=== PATIENT | male | born 1965 | race Caucasian/White ===

== ENCOUNTER 2025-03-02 23:22 | Inpatient (IN) | payer BC, SELFPAY ==
[2025-03-02 18:10] VITALS: BP 130/75
[2025-03-02 18:30] LABS: % Basophils 0.3 % (0-2); % Immature Granulocytes 0.6 % (0-0.5); % Lymphocytes 11.9 % (20.5-51.1); % Monocytes 6.8 % (1.7-9.3); % Neutrophils 80.4 % (42.2-75.2); Absolute Basophils 0.1 10^3/uL (0-0.2); Absolute Immature Granulocytes 0.1 10^3/uL (0-0.05); Absolute Lymphocytes 2.1 10^3/uL (1.2-3.4); Absolute Monocytes 1.2 10^3/uL (0.1-0.6); Absolute Neutrophils 13.9 10^3/uL (1.4-6.5); Hematocrit 48.3 % (39.0-52.0); Hemoglobin 16.6 g/dL (13.0-18.0); Mean Corp Hgb Conc. 34.4 g/dL (33.0-37.0); Mean Corpuscular Hgb 29.9 pg (27.0-31.0); Mean Corpuscular Volume 86.9 fL (80.0-94.0); Mean Platelet Volume 10.4 fL (7.4-10.4); Nucleated Red Blood Cells % 0 % (-); Platelet Count 165 10^3/uL (130-400); Red Blood Cell Count 5.56 10^6/uL (4.70-6.10); Red Cell Dist. Width 13.4 % (11.5-14.5); White Blood Cell Count 17.3 10^3/uL (4.8-10.8)
[2025-03-02 18:40] LABS: INR 1.25
[2025-03-02 18:42] LABS: Lactic Acid 1.7 mmol/L (0.7-2.0)
[2025-03-02 18:43] LABS: ALT (SGPT) 25 U/L (0-50); AST (SGOT) 40 U/L (17-59); Albumin 4.1 g/dl (3.5-5.0); Alkaline Phosphatase 58 U/L (38-126); Blood Urea Nitrogen 19 mg/dl (9-20); Carbon Dioxide 25 mmol/L (22-30); Chloride 101 mmol/L (98-107); Glucose 182 mg/dl (70-99); Potassium 4.5 mmol/L (3.5-5.1); Sodium 137 mmol/L (135-145); Total Bilirubin 2.9 mg/dl (0.2-1.3); Total Protein 7.6 g/dl (6.3-8.2); eGFR 48.72
[2025-03-02 19:53] VITALS: BP 138/74
[2025-03-02 19:58] LABS: Glucose - Point of Care 180 mg/dl (70-99)
[2025-03-02 20:00] VITALS: BP 127/72
[2025-03-02 20:44] VITALS: BMI 35.8
[2025-03-02 20:45] VITALS: BP 127/72
[2025-03-02] MEDS: OFIRMEV 100 IV (20:58)
[2025-03-02] MEDS: ZOFRAN 4 MG IV (20:59)
[2025-03-02] MEDS: NSS 1000 IV (20:59)
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
[2025-03-02 22:00] VITALS: BP 107/66
[2025-03-02] MEDS: ZOSYN 50 IV (22:15)
[2025-03-02] MEDS: VANCOCIN 540 MG IV (22:43)
[2025-03-02 23:00] VITALS: BP 108/68
--- NOTE | 2025-03-02 23:05 | HPS.HSE ---
Family Physician
-
Family Physician: Josey Lara, DO
Chief Complaint
-
Left lower leg abrasion, erythema with lymphangitis and fever x 2 days
History of Present Illness
59-year-old male complaining of left leg redness, pain, swelling and fever. He reports he had a minor abrasion to his anterior gamble for approximately 1 month over the 2 days he has had increased redness with pain the redness then began to start
streaking up his leg with fever and chills. He was febrile at 100.5 in the ER his reported to the ER he had similar symptoms with cellulitis in the past. He denies headache, sore throat, chest pain, palpitations, cough, shortness of breath,
abdominal pain, nausea, vomiting, diarrhea, urinary symptoms.
He has past medical history past medical history DM2, HLD, tremors to head and hands undiagnosed, class II obesity, anxiety
Medical History
Past Medical History
Past Medical History: Reports Other
Additional Past Medical History:
DM2
HLD
tremors to head and hands undiagnosed
class II obesity
anxiety
Past Surgical History: Reports Other
Additional Past Surgical History:
Appendectomy
Social History
Tobacco: Non-smoker
Alcohol: None
Drug: None
Personal:
Living: With Family ()
Employment: Employed ([employer])
Family History
Family History: Not pertinent
Allergies / Home Medications
Allergies reflects when Allergies were last updated in [facility].
Home Medications with original date entered in [facility]
Allergy/Medication List:
Allergies
Allergy/AdvReac Type Severity Reaction Status Date / Time
clindamycin Allergy Rash Verified 03/02/25 18:14
Home Medications
ascorbic acid (vitamin C) 500 mg tablet (Vitamin C) 500 mg PO DAILY 03/02/25
citalopram 40 mg tablet 40 mg PO DAILY 03/02/25
empagliflozin 25 mg-linagliptin 5 mg-metformin ER 1,000 mg tablet,24hr (Trijardy XR) 1 tab PO DAILY 03/02/25
glimepiride 2 mg tablet 1 mg PO QPM 03/02/25
insulin glargine 100 unit/mL (3 mL) subcutaneous pen (Lantus Solostar U-100 Insulin) 18 unit SC HS 03/02/25
metformin 500 mg tablet,extended release 24 hr 500 mg PO DAILY 03/02/25
rosuvastatin 10 mg tablet 10 mg PO HS 03/02/25
therapeutic multivitamin 1 tab PO DAILY 03/02/25
Review of Systems
-
History Source: Patient
A 12 point ROS was completed and negative except as noted: Yes
Constitutional: Reports Fever
EENT: Denies Sore Throat or Runny Nose
Respiratory: Denies Cough or Trouble Breathing
Cardiac: Denies Chest Pain, Diaphoresis, Palpitations or Syncope
Abdomen/GI: Reports Other (Decreased appetite and oral intake past 2 days); Denies Abdominal Pain, Nausea, Vomiting, Diarrhea, Constipated, Bloody Stools or Black Stools
: Denies Dysuria, Frequency, Flank Pain, Incontinence, Difficulty Voiding or Urgency
Musculoskeletal: Denies Joint Pain or Edema
Skin: Reports Other (Left lower extremity anterior gamble old scab with surrounding erythema up anterior gamble to the medial aspect of inner thigh up to groin); Denies Itching or Rash
Neurological: Denies Dizzy or Headache
Endocrine: Reports No Symptoms
Hematologic/Lymphatic: Reports No Symptoms
Psych: Reports Calm
Physical Exam
Vital Signs
Vital Signs
Temp Pulse Resp BP Pulse Ox
100.5 F H 94 25 127/72 96
03/02/25 20:45 03/02/25 20:45 03/02/25 20:45 03/02/25 20:45 03/02/25 20:46
Physical Exam
General: Comfortable, Conversant, Fever and Chills
HEENT: NormoCephalic, Anicteric, Moist mucous membranes, PERRLA, [place] Conjunctivae and No Ptosis
Respiratory: Clear; No Wheezes, Rales or Rhonchi
Cardiac: S1/S2 and Regular Rhythm; No Murmur, Rub, Gallop or Peripheral Edema
Breast: Deferred by me
GI: Soft, Non Tender, Non Distended, Normal Bowel Sounds and No Hepatosplenomegaly
Rectal: Deferred by Provider
Genito-urinary: Deferred by me
Musculoskeletal: No Clubbing, No Cyanosis and Edema, Left Lower Extremity (Left lower extremity anterior gamble old scab with surrounding erythema up anterior gamble to the medial aspect of inner thigh up to groin); No Edema, Left Upper Extremity,
Edema, Right Upper Extremity or Edema, Right Lower Extremity
Skin: Warm and Dry
Neuro: AO x 3, No Motor Deficits, Nonfocal/grossly intact, Cranial Nerves Intact, No Sensory Deficits and Tremors (To head and bilateral hands); No Slurred Speech, Facial Droop or Sedated
Psych: Calm
Laboratory Results
-
03/02/25 18:22
03/02/25 18:22
Laboratory Results
PT 16.0 Sec (11.4-14.6) H 03/02/25 18:22
INR 1.25 03/02/25 18:22
Lactic Acid Cancelled 03/02/25 22:15
Total Bilirubin 2.9 mg/dl (0.2-1.3) H 03/02/25 18:22
AST 40 U/L (17-59) 03/02/25 18:22
ALT 25 U/L (0-50) 03/02/25 18:22
Alkaline Phosphatase 58 U/L (38-126) 03/02/25 18:22
Impression/Plan
-
Impression/plan:
Admit to telemetry
#Sepsis secondary to left lower leg cellulitis with lymphangitis
WBC 17.3 with left shift, 100.5 F, HR 94, 127/72
- Blood cultures x 2
-Vancomycin ,IV Zosyn
Follow CBC, BMP
CT lower extremity with IV contrast:
1. There is edema within the subcutaneous tissues, most pronounced anterior to the knee, and [id number], especially mid to distal tibia and fibula estimated to the foot.
2. No focal collection or abscess.
3. No soft tissue gas. No radiopaque foreign body.
4. Few left inguinal lymph nodes, with the largest lymph node short axis measurement of 1.3 cm, consistent with mild adenopathy.
5. No bony destruction or periosteal reaction. No CT evidence of osteomyelitis.
6. No significant arterial calcified plaque, stenosis, or occlusion.
7. Incidental note is made of small scrotal hydroceles.
? MILTON likely secondary to volume depletion versus CKD
Creat 1.6
-IV NSS1 L given in ER
- Continue IV NSS 100 cc an hour
#DM 2
BS 182
Accu-Cheks with SSI, check HgbA1c
-Hold metformin, hold Trijardy
-Continue glimepiride 1 mg every afternoon
- Continue Lantus at 9 units versus 18 units at bedtime
#Class II obesity�BMI 35.8
Affects all aspects of care
Weight loss recommended
1800 ADA low-fat diet
#Tremor to head and hands
- Patient states never had worked up as far as he can recall
- Recommend following up outpatient with neurology
#Anxiety
Continue citalopram 40 mg daily
DVT prophylaxis
Subcu heparin
Full code
--- NOTE | 2025-03-02 23:38 | W.PN.UPDATE ---
Update Note
Progress Note Update
This is an addendum to the H&P written by Anastasiya Limon on 03/02/2025. Patient seen and examined independently with BOILERHOUSE MECHANIC.
59-year-old male past medical history of diabetes, hypercholesteremia, anxiety/depression, presenting with left lower extremity redness and swelling and pain.
Patient with temperature of 100.5, tachypnea, tachycardia.
Labs show leukocyte of 17. Creatinine 1.6.
CT scan of left lower extremity shows edema within the subcutaneous tissues most pronounced anterior to the knee, and below the knee especially mid to distal tibia and fibula.
Patient with sepsis secondary to cellulitis/lymphangitis of left lower extremity from a prior injury. Also with MILTON. Blood cultures pending. IV fluids. Reduce insulin dose. Hold oral hypoglycemic medications.
Patient also with ongoing head and upper extremity tremors for which she needs to follow with neurology as outpatient.
[2025-03-03 01:20] VITALS: BP 111/71
[2025-03-03 01:46] VITALS: BP 120/56; BMI 35.6
[2025-03-03 02:13] LABS: Glucose - Point of Care 136 mg/dl (70-99)
[2025-03-03] MEDS: LANTUS 0.09 UNITS SC (02:14)
[2025-03-03] MEDS: NSS 1000 IV ×2 (02:15→11:15)
[2025-03-03] MEDS: ZOSYN 50 IV ×2 (05:00→09:33)
[2025-03-03 06:11] LABS: % Basophils 0.3 % (0-2); % Immature Granulocytes 0.6 % (0-0.5); % Lymphocytes 10.7 % (20.5-51.1); % Monocytes 8.9 % (1.7-9.3); % Neutrophils 79.5 % (42.2-75.2); Absolute Immature Granulocytes 0.1 10^3/uL (0-0.05); Absolute Lymphocytes 1.5 10^3/uL (1.2-3.4); Absolute Monocytes 1.3 10^3/uL (0.1-0.6); Absolute Neutrophils 11.4 10^3/uL (1.4-6.5); Mean Corp Hgb Conc. 33.3 g/dL (33.0-37.0); Mean Corpuscular Hgb 29.6 pg (27.0-31.0); Mean Corpuscular Volume 88.8 fL (80.0-94.0); Mean Platelet Volume 10.7 fL (7.4-10.4); Nucleated Red Blood Cells % 0 % (-); Platelet Count 144 10^3/uL (130-400); Red Blood Cell Count 4.73 10^6/uL (4.70-6.10); Red Cell Dist. Width 13.3 % (11.5-14.5); White Blood Cell Count 14.3 10^3/uL (4.8-10.8)
[2025-03-03 06:58] LABS: ALT (SGPT) 21 U/L (0-50); AST (SGOT) 35 U/L (17-59); Albumin 3.3 g/dl (3.5-5.0); Alkaline Phosphatase 52 U/L (38-126); Blood Urea Nitrogen 18 mg/dl (9-20); Calcium 8.1 mg/dl (8.4-10.2); Carbon Dioxide 22 mmol/L (22-30); Chloride 105 mmol/L (98-107); Estimated Creatinine Clearance 67 ml/min; Glucose 124 mg/dl (70-99); Potassium 4.8 mmol/L (3.5-5.1); Sodium 138 mmol/L (135-145); Total Bilirubin 2.2 mg/dl (0.2-1.3); Total Protein 6.2 g/dl (6.3-8.2); eGFR 52.64
[2025-03-03 07:35] VITALS: BP 131/77
[2025-03-03] MEDS: NOVOLOG FLEXPEN-LOW RESISTANCE SC ×2 (07:52→12:32)
--- NOTE | 2025-03-03 07:56 | PHA.VAN.IN ---
Assessment
- Assessment
Renal Function: Unknown baseline
Renal Function may be Overestimated due to: bmi=35.6
Concomitant Antimicrobials: zosyn
AUC Dosing Plan
- Dosing Variables
Dosing Weight (kg): 115.723
Dosing CrCl (ml/min): 67
Vd coefficient (L/kg): 0.6
- Empiric Dosing
Initial / Loading Dose: 2000mg 03/02
Maintenance Regimen: 1000mg q12h
Estimated AUC (mcg*h/mL): 494
Estimated Peak (mcg*h/mL): 28.1
Estimated Trough (mcg/ml): 14.5
Estimated Half Life (H): 11.5
- Monitoring
No levels ordered at this time: consider at steady state
Pharmacokinetics Vancomycin I
- -
Patient Age: 59
Patient Sex: Male
Vancomycin Day #: 1
Indication: Skin And Soft Tissue
Requesting Provider: Anastasiya Limon
Pertinent Antimicrobial Allergies:
clindamycin=rash
Height / Weight:
Height 5 ft 11 in
Actual Weight 115.723 kg
IBW in k.3
- Vital Signs / Lab Results
Temp Pulse Resp BP Pulse Ox
98.1 F 93 18 120/56 97
03/03/25 01:46 03/03/25 01:46 03/03/25 01:46 03/03/25 01:46 03/03/25 01:49
Lab Results - Hematology
03/02/25 03/03/25
18:22 05:40
WBC 17.3 H 14.3 H
Lab Results - Chemistry
03/02/25 03/03/25
18:22 05:40
BUN 19 18
Creatinine 1.6 H 1.5 H
Estimated Creat Clear 67
Albumin 4.1 3.3 L
03/02/25 03/02/25
18:22 22:15
Lactic Acid 1.7 Cancelled
[2025-03-03] MEDS: VITAMIN C 500 MG PO (08:22)
[2025-03-03] MEDS: CELEXA 40 MG PO (08:22)
[2025-03-03] MEDS: HEPARIN 5000 UNITS SC ×2 (08:23→21:21)
[2025-03-03] MEDS: THERAGRAN 1 TABLET PO (08:23)
--- NOTE | 2025-03-03 10:31 | W.PN.HOSP.TC ---
Today's Communication/Plan
-
cont vanco/zosyn for now
consult ID
follow cultures
Assessment / Plan
Assessment / Plan
pt is a 59 year old male
Sepsis (POA) secondary to left lower leg cellulitis with lymphangitis--on vanco/zosyn--cont for now but can likely change to Ancef 2 gms Q8--consult ID--cont IVF--await blood cultures
elevated creat--unclear baseline as has no previous labs here (although suspect CKD unknown stage due to DM type 2)--trend creat--cont IVF
Type 2 DM --agree with holding metformin/Trijardy--cont glimepiride and lantus--put back to normal dosing
obesity�BMI 35.8--Affects all aspects of care--Weight loss recommended
Tremor to head and hands--likely essential- Patient states never had worked up as far as he can recall- Recommend following up outpatient with neurology
Anxiety--Continue citalopram 40 mg daily
DVT proph--SC heparin
Code status--Full code
Anticipated Discharge: > 48 hours
Subjective/Interval History
-
Date of Service: March 03, 2025
pt c/o left leg pain, fever
Objective Data
-
Labs:
Laboratory Results
03/03/25
05:40
WBC 14.3 H
Hgb 14.0
Hct 42.0
Plt Count 144
Sodium 138
Potassium 4.8
Chloride 105
Carbon Dioxide 22
BUN 18
Creatinine 1.5 H
Glucose 124 H
Calcium 8.1 L
Total Bilirubin 2.2 H
AST 35
ALT 21
Alkaline Phosphatase 52
Vital Signs:
max temp for 24 hours
03/02/25
20:45
Temp 100.5 F H
Vital Signs
Temp Pulse Resp BP Pulse Ox
99 F 97 20 131/77 95
03/03/25 07:35 03/03/25 07:35 03/03/25 07:35 03/03/25 07:35 03/03/25 08:15
Review of Systems
-
All other systems: Reviewed and negative
Musculoskeletal: Reports Other (left leg, pain)
Physical Exam
-
General: Well Developed, Well Nourished and No Apparent Distress
HEENT: Normocephalic and Atraumatic; Negative Oxygen
Respiratory: Clear to Auscultation; Negative Wheezes or Rhonchi
Cardiac: Regular Rhythm, S1/S2 and Tachycardic
GI: Soft, Nontender, Nondistended and Normal Bowel Sounds
Musculoskeletal: No Clubbing, No Cyanosis and Other (left leg with scabbed areas on anterior gamble with surrounding circumferential redness and streaking up inner thigh to groin with painful LAD left groin)
Neuro: Awake
Psych: Calm
[2025-03-03] MEDS: TYLENOL 650 MG PO ×2 (10:58→23:15)
[2025-03-03 12:22] LABS: Glucose - Point of Care 126 mg/dl (70-99)
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
[2025-03-03 15:05] VITALS: BP 112/69
[2025-03-03 16:23] LABS: COVID-19 Antigen Negative (Negative)
[2025-03-03 16:49] LABS: Glucose - Point of Care 208 mg/dl (70-99)
[2025-03-03] MEDS: NOVOLOG FLEXPEN-LOW RESISTANCE 2 UNITS SC (17:24)
[2025-03-03] MEDS: ANCEF 10 IV (17:24)
[2025-03-03] MEDS: AMARYL 1 MG PO (17:24)
[2025-03-03 21:19] LABS: Glucose - Point of Care 142 mg/dl (70-99)
[2025-03-03] MEDS: CRESTOR 10 MG PO (21:21)
[2025-03-03] MEDS: LANTUS 0.12 UNITS SC (21:21)
[2025-03-03] MEDS: ROXICODONE 5 MG PO (21:47)
[2025-03-03 23:39] VITALS: BP 123/80
[2025-03-04] MEDS: ANCEF 10 IV ×3 (00:25→16:02)
[2025-03-04] MEDS: NSS 1000 IV ×2 (02:36→08:23)
[2025-03-04 06:19] LABS: % Basophils 0.3 % (0-2); % Immature Granulocytes 0.4 % (0-0.5); % Lymphocytes 18.4 % (20.5-51.1); % Monocytes 12.9 % (1.7-9.3); Absolute Eosinophils 0.1 10^3/uL (0-0.7); Absolute Lymphocytes 1.7 10^3/uL (1.2-3.4); Absolute Monocytes 1.2 10^3/uL (0.1-0.6); Absolute Neutrophils 6.1 10^3/uL (1.4-6.5); Hematocrit 39.9 % (39.0-52.0); Hemoglobin 13.5 g/dL (13.0-18.0); Mean Corp Hgb Conc. 33.8 g/dL (33.0-37.0); Mean Corpuscular Hgb 30.2 pg (27.0-31.0); Mean Corpuscular Volume 89.3 fL (80.0-94.0); Mean Platelet Volume 10.7 fL (7.4-10.4); Nucleated Red Blood Cells % 0 % (-); Platelet Count 141 10^3/uL (130-400); Red Blood Cell Count 4.47 10^6/uL (4.70-6.10); Red Cell Dist. Width 13.3 % (11.5-14.5); White Blood Cell Count 9.1 10^3/uL (4.8-10.8)
[2025-03-04 06:47] LABS: ALT (SGPT) 19 U/L (0-50); AST (SGOT) 30 U/L (17-59); Albumin 2.9 g/dl (3.5-5.0); Alkaline Phosphatase 67 U/L (38-126); Blood Urea Nitrogen 20 mg/dl (9-20); Calcium 7.9 mg/dl (8.4-10.2); Carbon Dioxide 25 mmol/L (22-30); Chloride 107 mmol/L (98-107); Estimated Creatinine Clearance 77 ml/min; Glucose 193 mg/dl (70-99); Magnesium 2.1 mg/dl (1.6-2.3); Potassium 4.1 mmol/L (3.5-5.1); Sodium 139 mmol/L (135-145); Total Protein 5.7 g/dl (6.3-8.2); eGFR > 60.00
[2025-03-04 07:35] VITALS: BP 126/78
[2025-03-04 08:16] LABS: Glucose - Point of Care 145 mg/dl (70-99)
[2025-03-04] MEDS: NOVOLOG FLEXPEN-LOW RESISTANCE SC ×3 (08:23→16:48)
[2025-03-04] MEDS: ROXICODONE 5 MG PO (08:24)
[2025-03-04] MEDS: HEPARIN 5000 UNITS SC ×2 (08:25→20:14)
[2025-03-04] MEDS: CELEXA 40 MG PO (08:25)
[2025-03-04] MEDS: AMARYL 1 MG PO (08:25)
[2025-03-04] MEDS: VITAMIN C 500 MG PO (08:25)
[2025-03-04] MEDS: THERAGRAN 1 TABLET PO (08:26)
--- NOTE | 2025-03-04 11:21 | W.PN.HOSP.TC ---
Today's Communication/Plan
-
cont ancef
consult DM INVASIVE CARDIOLOGIST
Assessment / Plan
Assessment / Plan
pt is a 59 year old male
Sepsis (POA) secondary to left lower leg cellulitis with lymphangitis--vanco/zosyn changed to ancef per ID, apprec input--stop IVF--blood cultures negative
elevated creat--unclear baseline as has no previous labs here (although suspect CKD unknown stage due to DM type 2)--trend creat, down to 1.3--stop IVF
Type 2 DM --agree with holding metformin/Trijardy--cont glimepiride and lantus--consult DM INVASIVE CARDIOLOGIST--pt eating saltine crackers for snacks (on his bedside table)
obesity�BMI 35.8--Affects all aspects of care--Weight loss recommended
Tremor to head and hands--likely essential- Patient states never had worked up as far as he can recall--Recommend following up outpatient with neurology
Anxiety--Continue citalopram 40 mg daily
DVT proph--SC heparin
Code status--Full code
Anticipated Discharge: 24 - 48 hours
Subjective/Interval History
-
Date of Service: March 04, 2025
pt leg looking better--says groin and upper thigh improving
Objective Data
-
Labs:
Laboratory Results
03/04/25
05:47
WBC 9.1
Hgb 13.5
Hct 39.9
Plt Count 141
Sodium 139
Potassium 4.1
Chloride 107
Carbon Dioxide 25
BUN 20
Creatinine 1.3
Glucose 193 H
Calcium 7.9 L
Total Bilirubin 1.0 D
AST 30
ALT 19
Alkaline Phosphatase 67
Vital Signs:
max temp for 24 hours
03/03/25
10:54
Temp 100.8 F H
Vital Signs
Temp Pulse Resp BP Pulse Ox
98.4 F 72 16 126/78 97
03/04/25 07:35 03/04/25 07:35 03/04/25 07:35 03/04/25 07:35 03/04/25 08:25
I&O
03/03/25 03/04/25 03/05/25
06:59 06:59 06:59
Intake Total 680 / 680
Balance 680 / 680
Review of Systems
-
All other systems: Reviewed and negative
Physical Exam
-
General: Well Developed, Well Nourished and No Apparent Distress
HEENT: Normocephalic and Atraumatic; Negative Oxygen
Respiratory: Clear to Auscultation; Negative Wheezes or Rhonchi
Cardiac: Regular Rhythm and S1/S2; Negative Murmur
GI: Soft, Nontender, Nondistended and Normal Bowel Sounds
Musculoskeletal: No Clubbing, No Cyanosis, No Edema and Other (left leg still red around lower leg, calf--improving--streaking up thigh resolved)
[2025-03-04 11:38] LABS: Glucose - Point of Care 150 mg/dl (70-99)
[2025-03-04] MEDS: TYLENOL PO (11:49)
--- NOTE | 2025-03-04 12:07 | CM ---
CM following re: discharge planning.
Reviewed pt's chart, met with pt.
Pt is a 59 year old male, admitted with primary dx of Sepsis secondary to left lower leg cellulitis with lymphangitis.
Pt reports he lives with spouse 2SH, 1 step to enter, has 2 supportive children. 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 Pt reports he has insurance and his spouse provided to RN.
PCP: Josey Lara
Pharmacy: [facility] [place]
D/C plan: home with anticipated no needs.
CM will follow with discharge plan updates as hospitalization progresses
[2025-03-04] MEDS: TYLENOL 650 MG PO ×3 (13:05→20:14)
--- NOTE | 2025-03-04 14:28 | W.PN.ID1 ---
Date of Service
Date of Service: March 04, 2025
Today's Communication
Continue antibiotics.
Assessment / Plan
Left lower extremity cellulitis
- Given lymphangitic spread, suspect streptococcal in etiology
Leukocytosis
Fever
DM type II (uncontrolled; HbA1c = 8.0)
HLD
Hx hand tremor
Obesity
Recommendations:
Continue cefazolin.
Monitor white count and temperature curve.
Follow erythema for improvement.
Possible transition to oral regimen in the next 24 to 48 hours.
Tight glucose control for optimal leukocyte function.
Left lower extremity Dash wrap.
Chief Complaint
-: Cellulitis
Subjective / Review of Systems
Patient seen and examined. Notes ongoing erythema of the distal left lower extremity. Erythema of the medial thigh has improved.
Review of Systems: No Fever and No Chills
Vital Signs / Physical Exam
Vital Signs
Vital Signs
Temp Pulse Resp BP Pulse Ox
98.4 F 72 16 126/78 97
03/04/25 07:35 03/04/25 07:35 03/04/25 07:35 03/04/25 07:35 03/04/25 08:25
Physical Exam
Constitutional: No Acute Distress, Comfortable and Non-toxic
Eyes: Sclera Anicteric
Cardiovascular: S1/S2; Negative S3/S4
Pulmonary: Non Labored
Gastrointestinal: Soft and Non Tender
Extremities: Edema and Erythema
Neurological: Awake and Alert
Psychological: Calm
Objective Data
Lab Data
Lab Results
03/04/25 05:47
03/04/25 05:47
PT 16.0 Sec (11.4-14.6) H 03/02/25 18:22
INR 1.25 03/02/25 18:22
Estimated Creat Clear 77 ml/min 03/04/25 05:47
Lactic Acid Cancelled 03/02/25 22:15
Total Bilirubin 1.0 mg/dl (0.2-1.3) D 03/04/25 05:47
AST 30 U/L (17-59) 03/04/25 05:47
ALT 19 U/L (0-50) 03/04/25 05:47
Alkaline Phosphatase 67 U/L (38-126) 03/04/25 05:47
Most recent labs reviewed.
Micro Results:
03/02/25 21:02 Blood Culture - Preliminary
Blood/Venous No Growth in 24 hours- Final report to follow
03/02/25 18:22 Blood Culture - Preliminary
Blood/Venous No Growth in 24 hours- Final report to follow
03/03/25 15:59 Influenza Types A & B (OSIRIS) - Final
Nasal Swab Negative for Influenza A & B, NAAT
Negative results must be combined with clinical observations
and patient history.
Nucleic Acid Amplification test (NAAT)performed on the
[employer] platform.
Imaging:
03/02/25 CT left lower extremity: Edema is noted within the subcutaneous tissue, most pronounced anterior to the knee and below the knee. No focal collection or abscess. No soft tissue gas. No radiopaque foreign body. Few left inguinal lymph
nodes are noted, with the largest node approximately 1.3 cm consistent with mild adenopathy. No bony destruction or periosteal reaction. Please see full dictation for additional detail.
[2025-03-04 15:35] VITALS: BP 128/69
[2025-03-04 16:46] LABS: Glucose - Point of Care 133 mg/dl (70-99)
[2025-03-04] MEDS: CRESTOR 10 MG PO (20:14)
[2025-03-04 21:12] LABS: Glucose - Point of Care 241 mg/dl (70-99)
[2025-03-04] MEDS: LANTUS 0.12 UNITS SC (21:48)
[2025-03-04 23:40] VITALS: BP 127/77
[2025-03-05] MEDS: ANCEF 10 IV ×2 (01:20→08:36)
[2025-03-05] MEDS: TYLENOL 650 MG PO ×3 (01:20→13:02)
[2025-03-05] MEDS: TYLENOL PO (04:32)
[2025-03-05 07:04] LABS: % Basophils 0.4 % (0-2); % Eosinophils 2.4 % (0-6); % Immature Granulocytes 0.4 % (0-0.5); % Lymphocytes 19.4 % (20.5-51.1); % Monocytes 9.9 % (1.7-9.3); % Neutrophils 67.5 % (42.2-75.2); Absolute Eosinophils 0.2 10^3/uL (0-0.7); Absolute Lymphocytes 1.5 10^3/uL (1.2-3.4); Absolute Monocytes 0.8 10^3/uL (0.1-0.6); Absolute Neutrophils 5.1 10^3/uL (1.4-6.5); Hematocrit 43.5 % (39.0-52.0); Hemoglobin 14.6 g/dL (13.0-18.0); Mean Corp Hgb Conc. 33.6 g/dL (33.0-37.0); Mean Corpuscular Hgb 29.7 pg (27.0-31.0); Mean Corpuscular Volume 88.6 fL (80.0-94.0); Mean Platelet Volume 10.5 fL (7.4-10.4); Nucleated Red Blood Cells % 0 % (-); Platelet Count 180 10^3/uL (130-400); Red Blood Cell Count 4.91 10^6/uL (4.70-6.10); Red Cell Dist. Width 13.2 % (11.5-14.5); White Blood Cell Count 7.6 10^3/uL (4.8-10.8)
[2025-03-05 07:19] LABS: ALT (SGPT) 24 U/L (0-50); AST (SGOT) 32 U/L (17-59); Albumin 3.5 g/dl (3.5-5.0); Alkaline Phosphatase 75 U/L (38-126); Blood Urea Nitrogen 17 mg/dl (9-20); Calcium 8.6 mg/dl (8.4-10.2); Carbon Dioxide 26 mmol/L (22-30); Chloride 105 mmol/L (98-107); Estimated Creatinine Clearance 91 ml/min; Glucose 200 mg/dl (70-99); Magnesium 2.1 mg/dl (1.6-2.3); Potassium 4.7 mmol/L (3.5-5.1); Sodium 140 mmol/L (135-145); Total Protein 6.5 g/dl (6.3-8.2); eGFR > 60.00
[2025-03-05 07:28] VITALS: BP 141/82
[2025-03-05 07:42] LABS: Glucose - Point of Care 173 mg/dl (70-99)
--- NOTE | 2025-03-05 08:24 | PN.DE.MGMTRT ---
Insulin Management
- -
03/05/2025: Diabetes Management Consult
59 year old male with PMH: T2DM, HLD, tremors to head and hands undiagnosed, class II Obesity, Anxiety, presented with c/o left leg redness, pain, swelling and fever. Noted for Sepsis 2/2 left lower leg cellulitis with lymphangitis and MILTON, Cr
1.6-->1.1, eGFR >60 today. A1C 8.0%. Glucose on admission was 182.
Pt awake, alert, oriented, pleasant resting in bed, offers no complaints, able to discuss diabetes care plan
States he has had diabetes for over 10 years and was taking Glimepiride 4mg daily but was encountering recurrent episodes of Hypoglycemia and his dose was reduced to 1mg daily. He was also taking, Metformin 500mg daily, Lantus 18 units @ HS and
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
Current diabetes regimen includes: Lantus 12 units @ HS and Glimepiride 1mg daily.
Premeal Glucose has been stable and in range 133 to 150. FBG elevated, was 200 V, 173 POC this AM.
Will increase Lantus to 15 units. Will make no other changes to regimen, Cont Glimepiride 1mg daily and Low corrective insulin with meals
Metformin and Trijardy remain on HOLD given MILTON. Pt reports he uses Dexcom G6 for glucose monitoring at home.
Had lengthy discussed regarding life style modification, diet and exercise. Encouraged OP DSME classes and provided information for classes and number to call office to register. Pt was very receptive. Will cont to follow
Diabetes History
- -
Type of Diabetes: 2 requiring insulin
Pre-Admission Diabetes Regimen
03/05/25
06:40
Creatinine 1.1
Lab Results
Hemoglobin A1c 8.0 % (4.0-5.6) H 03/03/25 05:40
Insulin Pump Settings
IP Diabetes Regimen
03/04/25 03/04/25 03/04/25
11:35 16:44 21:11
Glucose
POC Glucose 150 H 133 H 241 H
03/05/25 03/05/25
06:40 07:40
Glucose 200 H
POC Glucose 173 H
Meal type: Dinner
Meal type: Lunch
Meal type: Breakfast
Amount consumed: 100%
Amount consumed: 100%
Amount consumed: 100%
Patient Education
[2025-03-05] MEDS: NOVOLOG FLEXPEN-LOW RESISTANCE 1 UNITS SC ×2 (08:35→13:01)
[2025-03-05] MEDS: AMARYL 1 MG PO (08:35)
[2025-03-05] MEDS: CELEXA 40 MG PO (08:36)
[2025-03-05] MEDS: HEPARIN 5000 UNITS SC (08:36)
[2025-03-05] MEDS: VITAMIN C 500 MG PO (08:37)
[2025-03-05] MEDS: THERAGRAN 1 TABLET PO (08:37)
--- NOTE | 2025-03-05 11:34 | W.PN.ID1 ---
Date of Service
Date of Service: March 05, 2025
Today's Communication
Continue antibiotics. See below�
Assessment / Plan
Left lower extremity cellulitis
- Given lymphangitic spread, suspect streptococcal in etiology
Leukocytosis
Fever
DM type II (uncontrolled; HbA1c = 8.0)
HLD
Hx hand tremor
Obesity
Recommendations:
Erythema has improved today with the application of lower extremity compression.
Transition to oral Keflex 500 mg 4 times daily for an additional 5 days of therapy.
Tight glucose control for optimal leukocyte function.
Left lower extremity Dash wrap.
����������������������������������������������������������
Chief Complaint
-: Cellulitis (LLE)
Subjective / Review of Systems
Review of Systems: No Fever and No Chills
Vital Signs / Physical Exam
Vital Signs
Vital Signs
Temp Pulse Resp BP Pulse Ox
98.8 F 74 20 141/82 98
03/05/25 07:28 03/05/25 07:28 03/05/25 07:28 03/05/25 07:28 03/05/25 07:28
Physical Exam
Constitutional: No Acute Distress, Comfortable and Non-toxic
Pulmonary: Non Labored
Gastrointestinal: Non Distended
Extremities: Edema (Decreased in LLE ) and Erythema (Decreased)
Neurological: Awake and Alert
Psychological: Calm
Objective Data
Lab Data
Lab Results
03/05/25 06:40
03/05/25 06:40
PT 16.0 Sec (11.4-14.6) H 03/02/25 18:22
INR 1.25 03/02/25 18:22
Estimated Creat Clear 91 ml/min 03/05/25 06:40
Lactic Acid Cancelled 03/02/25 22:15
Total Bilirubin 1.0 mg/dl (0.2-1.3) 03/05/25 06:40
AST 32 U/L (17-59) 03/05/25 06:40
ALT 24 U/L (0-50) 03/05/25 06:40
Alkaline Phosphatase 75 U/L (38-126) 03/05/25 06:40
Most recent labs reviewed.
Micro Results:
03/02/25 21:02 Blood Culture - Preliminary
Blood/Venous No Growth in 48 hours- Final report to follow
03/02/25 18:22 Blood Culture - Preliminary
Blood/Venous No Growth in 48 hours- Final report to follow
03/03/25 15:59 Influenza Types A & B (OSIRIS) - Final
Nasal Swab Negative for Influenza A & B, NAAT
Negative results must be combined with clinical observations
and patient history.
Nucleic Acid Amplification test (NAAT)performed on the
[employer] platform.
Imaging:
03/02/25 CT left lower extremity: Edema is noted within the subcutaneous tissue, most pronounced anterior to the knee and below the knee. No focal collection or abscess. No soft tissue gas. No radiopaque foreign body. Few left inguinal lymph
nodes are noted, with the largest node approximately 1.3 cm consistent with mild adenopathy. No bony destruction or periosteal reaction. Please see full dictation for additional detail.
[2025-03-05 11:57] LABS: Glucose - Point of Care 190 mg/dl (70-99)
[2025-03-05] MEDS: KEFLEX 500 MG PO (13:02)
--- NOTE | 2025-03-05 14:15 | CM ---
Patient seen at bedside with physicians. Patient stated that he was eager to go home. Patient confirmed he has insurance and information given to admissions. Patient to transport patient home. Patient plan is for discharge home and follow up
with pcp. CM will continue to follow for discharge planning needs.
Plan; home with no needs anticipated
--- NOTE | 2025-03-05 15:08 | W.PN.HOSP.TC ---
Addendum entered and electronically signed by Wendy Aranda MD 03/05/25 19:01:
I saw and evaluated the patient independently. I reviewed the resident�s note and agree with findings and plan as documented by Dr. Syed.
GENERAL: well developed, well nourished, male in no apparent distress
HEENT: NC/AT
HEART: regular rate and rhythm, +S1, +S2
LUNGS : clear to auscultation bilaterally
ABDOM: soft, nontender, nondistended, + bowel sounds
EXT: no cyanosis, clubbing, or edema--left leg redness improving but not completely resolved--healing scabs
Sepsis (POA) secondary to left lower leg cellulitis with lymphangitis--vanco/zosyn changed to ancef per ID, ancef changed to PO keflex--tubigrips--OK for d/c--apprec input--blood cultures negative
elevated creat--unclear baseline as has no previous labs here (although suspect CKD unknown stage due to DM type 2)--trend creat, down to 1.1--stop IVF
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
obesity�BMI 35.8--Affects all aspects of care--Weight loss recommended
Tremor to head and hands--likely essential- Patient states never had worked up as far as he can recall--Recommend following up outpatient with neurology
Anxiety--Continue citalopram 40 mg daily
DVT proph--SC heparin
Code status--Full code
OK for d/c
Original Note:
Today's Communication/Plan
-
- patient is being discharged today
Assessment / Plan
Assessment / Plan
Left lower leg cellulitis
Resolved sepsis:
- Blood cultures negative
- wbc is 7.6 and patient is afebrile. Vitals are stable.
- Physical exam at resolving erythema and edema the anterior and posterior aspect of left lower extremity
- Infectious disease have started patient on Keflex 500 mg 4 times a day for 5 days and recommend continuing on discharge
Acute kidney injury:
- Resolved, today's creatinine is 1.1
Type 2 diabetes mellitus:
- Consulted diabetes mellitus nurse practitioner in the hospital
- Glucose is 200, yesterday 193
- Metformin and Trijardy are held due potentiating the MILTON
- Glimepiride 1 mg continue
- Lantus dose was changed to 15 units and low corrective insulin with meals
Anxiety:
- Continue citalopram 40 mg daily
Unspecified tremor:
- Seen in hands and the head
- Recommend following up outpatient with neurology
Obesity:
- BMI is 35.6
- Advised on diet and weight loss
DVT prophylaxis is subcutaneous heparin
Full code
Anticipated Discharge: Today
Subjective/Interval History
-
Date of Service: March 05, 2025
No acute medical complaints.
Objective Data
-
Labs:
Laboratory Results
03/05/25
06:40
WBC 7.6
Hgb 14.6
Hct 43.5
Plt Count 180 D
Sodium 140
Potassium 4.7
Chloride 105
Carbon Dioxide 26
BUN 17
Creatinine 1.1
Glucose 200 H
Calcium 8.6
Total Bilirubin 1.0
AST 32
ALT 24
Alkaline Phosphatase 75
Vital Signs:
Vital Signs
Temp Pulse Resp BP Pulse Ox
98.8 F 74 20 141/82 98
03/05/25 07:28 03/05/25 07:28 03/05/25 07:28 03/05/25 07:28 03/05/25 07:28
I&O
03/04/25 03/05/25 03/06/25
06:59 06:59 06:59
Intake Total 680 / 680 660 / 660
Balance 680 / 680 660 / 660
Review of Systems
-
All other systems: Reviewed and negative
Physical Exam
-
General: Well Developed, Well Nourished and No Apparent Distress
HEENT: Normocephalic and Atraumatic
Respiratory: Clear to Auscultation
Cardiac: Regular Rhythm and S1/S2
GI: Soft, Nontender, Nondistended and Normal Bowel Sounds
Musculoskeletal: No Clubbing, No Cyanosis, Edema, Left Lower Extrem and Other (Resolving erythema and edema of the left lower extremity with ill defined margins.)
Skin: Warm and Dry
Neuro: Awake, Alert, Oriented and AO x 3
Psych: Calm
Data Reviewed
-
Labs: Labs Reviewed by me and Discussed with Physician
[2025-03-05 15:20] VITALS: BP 154/88
--- NOTE | 2025-03-05 15:59 | PTCARENOTE ---
03/05/2025 DIABETES EDUCATION
Met with Shady and spouse, previously provided education from DM PLAYER DEVELOPMENT MANAGER. I provided written material on Diabetes Management and DM classes. He previously used the Free Style Yana CGM, per insurance has switched to Dexcom and will garbage pick up worker at
pharmacy soon. He had difficulty with Yana CGM and alarms going off frequently. I educated that alarms will go off if < 70 mg/dL or > 180 mg/dL unless parameters were changed. I inquired about his glucose numbers triggering the alarms, he does
not remember what were his numbers at the time of the alarm. He stated that his providers did not offer instruction and was informed to contact the CGM aircraft maintenance manager. I provided Diabetes Education phone #, he will call when he receives the CGM
and to set initial appointment for DM class.
--- NOTE | 2025-03-05 17:15 | PTCARENOTE ---
IV discontinued. Discharge paperwork printed and reviewed with patient and spouse who verbalized understanding. Pt ambulated off the floor with all belongings from the room
--- NOTE | 2025-03-05 21:34 | W.DCSUMMARY ---
Addendum entered and electronically signed by Wendy Aranda MD 03/06/25 06:57:
Read, reviewed, and agree. See same day progress note for additional details. Time spent coordinating care, DC planning, review of DC plan of care with resident, transition of care, review of records in EMR, med rec, consults, notes, d/w
consultants, nursing, family, and CM = 33 minutes
Original Note:
Discharge Summary
Discharge Data
Date of Admission: 03/02/25
Date of Discharge: 03/05/25
-
Pending Results: No
Hospital Course
Discharging Physician : Dr. Wendy Aranda and Dr. Nixon Syed
Disposition : Home
Primary care physician : Dr. Josey Lara
Principal Discharge diagnosis : Sepsis secondary to left lower leg cellulitis, Acute Kidney Injury
Chronic Discharge diagnosis : Type 2 Diabetes Mellitus, Anxiety, Unspecified tremor, Obesity
Hospital Course 59 year old male with a past medical history of type 2 diabetes mellitus, hyperlipidemia, unspecified tremor, obesity, anxiety comes to the ED for month long redness, pain, swelling over his lower left extremity which has increased
in intensity over the past 2 days and is streaking upwards . Associated with fever and chills.
Problem #1: Sepsis secondary to left lower leg cellulitis w/ Lymphangitis---Presented with a temperature of 100.5, WBC count of 17.3, tachypnea, and tachycardia. CT scan of the left lower extremity shows edema within subcutaneous tissues anterior
to knee and below knee. Infectious disease consulted. Patient started on Vancomycin/ zosyn. Blood cultures negative then patient changed to Ancef. Patient also started on left lower extremity KRYSTLE wrap. Reduction in swelling, discoloration,
tenderness, in the marked areas around time of discharge. Discharged on 5 days of Keflex 500 mg QID.
Problem #2: Acute Kidney Injury possibly secondary to sepsis---Creatinine is 1.6 on admission. IV fluids started and then stopped when creatinine normalized to 1.3. On date of discharge creatinine 1.1.
Problem #3: Type 2 diabetes Mellitus---Patient had elevated glucose levels on admission. Metformin and Trijardy his home meds were both held due to impaired renal function as well as on discharge until cleared by PCP to restart. Continued on home
Glimepiride upon discharge. Diabetes Nurse was consulted and changed Lantus dose to 15 units on discharge.
Problem #4: Tremor in head/hands: Patient states that he never had it worked up. Follow up with neurology outpatient.
Problem #5: Anxiety--- Continue citalopram 40 mg on discharge.
Problem #6: Obesity---Patient is 115 kgs on discharge. Weight loss and diet are reccomended.
Important imaging findings :
Lower extremity Ct 03/02/25:
FINDINGS/impression:
There is edema within the subcutaneous tissues, most pronounced anterior to the knee, and [id number], especially mid to distal tibia and fibula estimated to the foot.
Procedure findings :
Discharge Plan
-
Patient Disposition: Home (Routine Discharge)
Discharge Diagnosis/Procedures: Sepsis secondary to left lower leg cellulitis, Acute Kidney Injury, Type 2 Diabetes mellitus, obesity, unspecified tremor of the hand, Anxiety
Condition: Fair
Diet: Diabetic, Carb Controlled
Activity: As tolerated
Driving Restrictions: Not until seen by your Dr
Bathing Restrictions: None
Blood Work: BMP in 1 week with PCP
Referrals:
Alphonse Herrera MD [Active] - in one to two weeks
Josey Lara DO [Family Provider] - in less than 1 week
Additional Discharge Medication Instructions: Lantus dose has been changed to 15 units
Hold Metformin and Trijardy until cleared by PCP
Oral Keflex 500 mg 4 times a day for 5 days
Use left lower extremity KRYSTLE wrap
Neurology follow up for tremor of hand and head
Prescriptions:
New
insulin glargine [Lantus U-100 Insulin] 100 unit/mL solution
15 unit SC DAILY Qty: 10 0RF
cephalexin 500 mg capsule
500 mg PO QID 5 Days Qty: 20 0RF
Continued
citalopram 40 mg Tablet
40 mg PO DAILY
therapeutic multivitamin Tablet
1 tab PO DAILY
glimepiride 2 mg Tablet
1 mg PO QPM
ascorbic acid (vitamin C) [Vitamin C] 500 mg Tablet
500 mg PO DAILY
rosuvastatin 10 mg Tablet
10 mg PO HS
Held
metformin 500 mg Tablet Extended Release 24 Hr
500 mg PO DAILY
Hold Instructions: Resume on 03/12/25. continue only after being cleared to do so by PCP
Trijardy XR 25-5-1,000 mg Tablet, Ir - Er, Biphasic 24hr
1 tab PO DAILY
Hold Instructions: Resume on 03/12/25. Only continue after being cleared by PCP
Discontinued
insulin glargine [Lantus Solostar U-100 Insulin] 100 unit/mL (3 mL) Insulin Pen
18 unit SC HS
Discharge Orders:
Discharge Patient (As Directed); Ordered 03/05/25
Ordered By: Nixon Syed
Discharge Date and Time
Discharge Date/Time: 03/05/25 18:51
Print Language: TURKISH
== END 2025-03-05 18:51 | disposition home or self-care (01) | DRG 872 ==
LOC: 4 EAST ACU 23:22
PROVIDERS: Clinical Nurse Specialist Family Health; Emergency Medicine; ADMITTING PHYSICIAN Hospitalist; ATTENDING PHYSICIAN Internal Medicine; CONSULT PHYSICIAN Internal Medicine Infectious Disease; EMERGENCY PHYSICIAN Emergency Medicine; FAMILY PHYSICIAN Family Medicine
DX: A41.9 Sepsis, unspecified organism (principal); L03.116 Cellulitis of left lower limb; N17.9 Acute kidney failure, unspecified; E11.65 Type 2 diabetes mellitus with hyperglycemia; E78.5 Hyperlipidemia, unspecified; E66.812 Obesity, class 2; Z68.35 Body mass index [BMI] 35.0-35.9, adult; F41.9 Anxiety disorder, unspecified; R25.1 Tremor, unspecified; N43.3 Hydrocele, unspecified; Z79.4 Long term (current) use of insulin; Z79.899 Other long term (current) drug therapy; E11.628 Type 2 diabetes mellitus with other skin complications; Z11.52 Encounter for screening for COVID-19
CPT/HCPCS: 73701; 80053; 82962; 83036; 83605; 83735; 85025; 85610; 87040; 87502; 87811; 96361; 96365; 96366; 96367; 96375; 99285; Q9967